=== PATIENT | male | born 1935 | race Caucasian/White ===

== ENCOUNTER 2016-09-23 14:33 | Observation (INO) ==
--- NOTE | 2016-09-23 15:48 | Emergency Department Note ---
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 Patient had episodes of feeling like he was going to pass out his blood pressure medicine was stopped because his blood pressure was going low. After about 5 weeks he noticed his blood pressure spiking up so he restarted his medications. He presents now for evaluation. 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 Description: lightheadedness, near-syncope History of similar episodes: No History of trauma: No Improves with: remaining still Worsens with: position - Related Data Home Medications Medication Instructions Recorded Confirmed Amlodipine [Norvasc] 10 mg PO BID 12/21/14 09/23/16 Atorvastatin [Lipitor] 20 mg PO DAILY 12/21/14 09/23/16 Clopidogrel [Plavix] 75 mg PO DAILY 12/21/14 09/23/16 Escitalopram [Lexapro] 10 mg PO DAILY 12/21/14 09/23/16 Ondansetron [Zofran] 4 mg PO Q6HR PRN 12/21/14 09/23/16 Rivaroxaban [Xarelto] 10 mg PO DAILY 12/21/14 09/23/16 Tiotropium [Spiriva] 18 mcg IH DAILY 01/22/16 09/23/16 Omeprazole/Sodium Bicarbonate 1 each PO DAILY 08/14/16 09/23/16 [Zegerid 20 mg Capsule] Nitroglycerin [Nitrostat] 0.4 mg SL DAILY PRN 09/23/16 09/23/16 Previous Rx's Medication Instructions Recorded HYDROcodone/Acet 5/325 mg [[place] 1 - 2 tab PO Q6H PRN #90 tab 07/18/16 5-325 mg] Bexarotene [Targretin] 1 appl TP DAILY #1 gel..gram. 08/14/16 HYDROcodone/Acet 10/325 mg [[place] 1 tab PO Q4HR PRN #180 tab 09/11/16 10-325 mg] Meclizine HCl [Verticalm] 25 mg PO TID PRN #20 tablet 09/23/16 Allergies Allergy/AdvReac Type Severity Reaction Status Date / Time No Known Allergies Allergy Verified 09/23/16 14:46 All systems ED: reviewed and negative except as stated. Constitutional: Denies: fever, chills, weakness, weight change Eyes: Denies: eye pain, eye discharge, vision change ENT ED: Denies: ear pain, throat pain, dental pain, hearing loss, epistaxis, congestion, dysphagia Cardiovascular: Reports: other (Or syncope). Denies: chest pain, palpitations, dyspnea on exertion, edema, syncope Respiratory: Denies: cough, dyspnea, wheezes, hemoptysis, stridor Gastrointestinal: Denies: abdominal pain, nausea, vomiting, diarrhea, constipation, hematemesis, melena, hematochezia Genitourinary: Denies: urgency, dysuria, frequency, hematuria Musculoskeletal: Denies: back pain, neck pain, arthralgia, myalgia Integumentary: Denies: rash, abrasion, lesions Neurological: Denies: headache, weakness, numbness, paresthesias, confusion, abnormal gait, vertigo Psychiatric: Denies: anxiety, depression, suicidal thoughts, homicidal thoughts , auditory hallucinations, visual hallucinations Endocrine: Denies: fatigue Hematological/Lymphatic: Denies: easy bleeding, easy bruising Allergic/Immunologic: Denies: facial swelling, urticaria Past Medical History - Past Medical History Medical history: Reports: coronary artery disease, hypertension Surgical history: Reports: LE stent(s) Psychiatric history: Reports: no psych history - Social History Smoking Status: Former smoker Smokeless Tobacco Status: No Alcohol use: Reports: rarely Drug use: Reports: none Physical Exam - General Limitations: no limitations General appearance: alert, in no apparent distress - Head Head exam: atraumatic, normocephalic, normal inspection - Eye Eye exam: Present: normal appearance, PERRL, EOMI - ENT ENT exam: normal exam, normal oropharynx, mucous membranes moist - Neck Neck exam: Present: normal inspection, full ROM, trachea midline - Chest Chest inspection: Present: normal inspection, symmetric chest wall rise - Respiratory Respiratory exam: Present: normal lung sounds bilaterally - Cardiovascular Cardiovascular exam: Present: regular rate - Abdominal Exam Abdominal exam: Present: soft, Non-Tender. Absent: tenderness, distention, guarding, rebound, rigidity - Extremities Exam Extremities exam: Present: normal inspection, full ROM. Absent: tenderness, pedal edema - Expanded Lower Extremity Exam Neurovascular/Tendon exam: Absent: motor deficit, sensory deficit, tendon deficit Gait: observed and normal - Back Exam Back exam: Present: normal inspection, full ROM. Absent: tenderness - Neurological Exam Neurological exam: Present: alert, oriented X3 - Psychiatric Psychiatric exam: Present: normal affect, normal mood - Skin Skin exam: Present: warm, dry, intact, normal color Course - Reevaluation(s) Reevaluation #1: 81-year-old comes in feeling like he is going to pass out. Patient has had episodes of bradycardia on the monitor. CT of the head no acute changes otherwise lab workup is negative. He will be admitted for observation. Time: 16:47 - Consultations Consultation #1: Discussed with , admit. Time: 16:47 Vital Signs Temperature 97.9 F 09/23/16 14:46 Pulse Rate 67 09/23/16 14:46 Respiratory Rate 15 09/23/16 14:46 Blood Pressure 159/73 09/23/16 14:46 O2 Sat by Pulse Oximetry 97 09/23/16 14:46 Temperature 97.9 F 09/23/16 14:46 Pulse Rate 56 09/23/16 16:14 Respiratory Rate 16 09/23/16 16:14 Blood Pressure 156/81 09/23/16 16:14 O2 Sat by Pulse Oximetry 97 09/23/16 16:14 Oxygen Delivery Oxygen Delivery Room Air Dizziness - Lab Data Lab results reviewed: Yes I reviewed the patient's lab results. Result diagrams: 09/23/16 15:55 09/23/16 15:55 Lab Results 09/23/16 09/23/16 09/23/16 Range/Units 15:55 15:55 15:55 WBC 5.6 (4.3-11.1) K/mcL RBC 3.76 L (4.19-5.50) M/mcL Hgb 11.9 L (12.9-16.9) g/dL Hct 36.2 L (37.5-50.1) % MCV 96.3 (83.0-100.0) fL MCH 31.6 (28.0-33.3) pg MCHC 32.9 (31.6-35.5) g/dL RDW 14.6 H (11.5-14.5) % Plt Count 232 (140-400) K/mcL MPV 10.1 (9.4-12.4) fL Immature Gran % 0.4 (0-4) % Seg Neutrophils % 67.0 % Lymphocytes % 18.0 % Monocytes % 11.6 % Eosinophils % 2.5 % Basophils % 0.5 % Neutrophils # 3.8 (1.6-8.9) K/mcL Lymphocytes # 1.0 (0.6-4.6) K/mcL Monocytes # 0.7 (0.0-1.3) K/mcL Eosinophils # 0.1 (0.0-0.6) K/mcL Basophils # 0.0 (0.0-0.2) K/mcL Sodium 141 (136-145) mEq/L Potassium 4.8 H (3.5-4.5) mEq/L Chloride 109 (98-109) mEq/L Carbon Dioxide 26 (19-29) mEq/L BUN 29 H (8-26) mg/dL Creatinine 1.51 H (0.72-1.25) mg/dL Est GFR ( Amer) 54 L (> 60) Est GFR (Non-Af Amer) 45 L (> 60) BUN/Creatinine Ratio 19 (6-26) Glucose 92 (70-99) mg/dL Calculated Osmolality 297 (280-300) Calcium 9.8 (8.6-10.8) mg/dL Troponin I 0.01 (0-0.03) ng/mL Urine Color (Yellow) Urine Clarity (Clear) Urine pH (5.0-8.0) pH Units Ur Specific [place] (1.010-1.025) Urine Protein (Neg-Trace) mg/dL Urine Glucose (UA) (Normal) mg/dL Urine Ketones (Negative) mg/dL Urine Blood (Negative) Urine Nitrite (Negative) Urine Bilirubin (Negative) Urine Urobilinogen (Normal) mg/dL Ur Leukocyte Esterase (Negative) Urine Microscopic RBC (0-3) per hpf Urine Microscopic WBC (0-3) per hpf Ur Squamous Epith Cells (None-Few) per lpf Calcium Oxalate Crystal Urine Bacteria (None-Few) per hpf Hyaline Casts (None-Few) per lpf Urine Mucus (Few) Ur Culture Indicated? (NO) 09/23/16 Range/Units 16:14 WBC (4.3-11.1) K/mcL RBC (4.19-5.50) M/mcL Hgb (12.9-16.9) g/dL Hct (37.5-50.1) % MCV (83.0-100.0) fL MCH (28.0-33.3) pg MCHC (31.6-35.5) g/dL RDW (11.5-14.5) % Plt Count (140-400) K/mcL MPV (9.4-12.4) fL Immature Gran % (0-4) % Seg Neutrophils % % Lymphocytes % % Monocytes % % Eosinophils % % Basophils % % Neutrophils # (1.6-8.9) K/mcL Lymphocytes # (0.6-4.6) K/mcL Monocytes # (0.0-1.3) K/mcL Eosinophils # (0.0-0.6) K/mcL Basophils # (0.0-0.2) K/mcL Sodium (136-145) mEq/L Potassium (3.5-4.5) mEq/L Chloride (98-109) mEq/L Carbon Dioxide (19-29) mEq/L BUN (8-26) mg/dL Creatinine (0.72-1.25) mg/dL Est GFR ( Amer) (> 60) Est GFR (Non-Af Amer) (> 60) BUN/Creatinine Ratio (6-26) Glucose (70-99) mg/dL Calculated Osmolality (280-300) Calcium (8.6-10.8) mg/dL Troponin I (0-0.03) ng/mL Urine Color Yellow (Yellow) Urine Clarity Cloudy A (Clear) Urine pH 5.5 (5.0-8.0) pH Units Ur Specific [place] 1.030 H (1.010-1.025) Urine Protein 30 H (Neg-Trace) mg/dL Urine Glucose (UA) Normal (Normal) mg/dL Urine Ketones Trace H (Negative) mg/dL Urine Blood Negative (Negative) Urine Nitrite Negative (Negative) Urine Bilirubin Small H (Negative) Urine Urobilinogen Normal (Normal) mg/dL Ur Leukocyte Esterase Negative (Negative) Urine Microscopic RBC 3-5 H (0-3) per hpf Urine Microscopic WBC 0-3 (0-3) per hpf Ur Squamous Epith Cells Many H (None-Few) per lpf Calcium Oxalate Crystal Present Urine Bacteria Few (None-Few) per hpf Hyaline Casts None Seen (None-Few) per lpf Urine Mucus Few (Few) Ur Culture Indicated? NO (NO) - Radiology Data Radiology results reviewed: Yes I reviewed the patient's radiology results. Chest X-Ray 09/23/16 15:32 IMPRESSION: No acute finding or significant change in the chest. D/ / Winston Rowe MD / Winston Rowe MD Interpreting Provider: Winston Rowe MD Head CT 09/23/16 15:32 IMPRESSION: No acute intracranial abnormality. Senescent changes. D/ / Eliazar Napoles / Eliazar Napoles Interpreting Provider: Eliazar Napoles - EKG Data EKG attestation: Yes I reviewed and interpreted this EKG. EKG shows normal: sinus rhythm Rate: normal Rhythm: NSR Interpretation: no acute changes
[2016-09-23 16:05] LABS: Basophils % 0.5 %; Eosinophils # 0.1 K/mcL (0.0-0.6); Eosinophils % 2.5 %; Hematocrit 36.2 % (37.5-50.1); Hemoglobin 11.9 g/dL (12.9-16.9); Immature Granulocytes % 0.4 % (0-4); Mean Corpuscular HGB Conc 32.9 g/dL (31.6-35.5); Mean Corpuscular Hemoglobin 31.6 pg (28.0-33.3); Mean Corpuscular Volume 96.3 fL (83.0-100.0); Mean Platelet Volume 10.1 fL (9.4-12.4); Monocytes # 0.7 K/mcL (0.0-1.3); Monocytes % 11.6 %; Neutrophils # 3.8 K/mcL (1.6-8.9); Platelet Count 232 K/mcL (140-400); Red Blood Count 3.76 M/mcL (4.19-5.50); Red Cell Distribution Width 14.6 % (11.5-14.5)
[2016-09-23 16:15] LABS: Calcium 9.8 mg/dL (8.6-10.8); Potassium 4.8 mEq/L (3.5-4.5)
[2016-09-23 16:25] LABS: Bilirubin,Urine Small (Negative); Blood,Urine Negative (Negative); Clarity,Urine Cloudy (Clear); Color,Urine Yellow (Yellow); Glucose,Urine (UA) Normal (Normal); Ketones,Urine Trace mg/dL (Negative); Leukocyte Esterase,Urine Negative (Negative); Nitrite,Urine Negative (Negative); PH,Urine 5.5 pH Units (5.0-8.0); Protein,Urine 30 mg/dL (Neg-Trace); Urobilinogen,Urine Normal (Normal)
[2016-09-23 16:27] LABS: Hyaline Casts,Urine None Seen per lpf (None-Few); Squamous Epithelial Cell,Urine Many per lpf (None-Few); WBC,Urine 0-3 per hpf (0-3)
[2016-09-23 16:30] LABS: Bacteria,Urine Few per hpf (None-Few); Calcium Oxalate Crystals,Urine Present; Mucus,Urine Few (Few)
--- NOTE | 2016-09-23 18:15 | Internal Med History&Physical ---
Date of Encounter: 09/23/16 Time of Encounter: 18:12 Assessment and Plan (1) Dizziness Current visit: Yes Status: Acute CT head is negative, he also c/o aural fullness and tinnitus. symptoms exacerbate when he moves around. no orthostasis, BP stable, no other focal neuro defecits. possible peripheral cause, probably BPPV, ?meniere's will start meclizine and check for response. also says that his HR goes low, sometimes in 40s and he was once evaluated by cardio for possible PM however he never needed one His HR is stable for now, will add continuous mycologist. (2) CAD (coronary artery disease) Current visit: Yes Status: Acute stable, continue home meds no chest pain s/p stent placement. Qualifiers: Coronary Disease-Associated Artery/Lesion type: [place] artery [place] vs. 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 has scaly and dry skin areas. 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 Walker is a 81 year old male with past medical history of hypertension, CAD status post stents, cutaneous T-cell lymphoma in remission, presented to ED with complaints of dizziness. He says he has on and off dizziness but today was worse, he was not able to stand and was about to pass out. He complains of bilateral aural fullness in transient blurring of vision. He denies any headache, focal neurological deficits, no syncope or seizures. He follows with Dr. Lawton, his blood pressure medications were held transiently given dizziness however it was restarted and the blood pressure started to go up. There is no evidence of orthostatic hypotension, checked at ED. At The time of my assessment, he is lying in bed in no acute distress, denies dizziness at this time. He reports that he went to urgent care at [place] where he was given a prescription for meclizine which he has not started yet. Past Med Surg Social Fam HX - Past Medical History Medical history: coronary artery disease, hypertension Psychiatric history: no psych history - Past Surgical History Surgical History: LE stent(s) - Social History Smoking Status: Former smoker Smokeless Tobacco Status: No Alcohol use: rarely Drug use: none - Family History Father Hx Family Cardiac Disorders: Yes ([place]) Internal Medicine - H&P: Meds Atorvastatin [Lipitor] 20 mg PO DAILY 12/21/14 [History] Clopidogrel [Plavix] 75 mg PO DAILY 12/21/14 [History] Escitalopram [Lexapro] 10 mg PO DAILY 12/21/14 [History] Ondansetron [Zofran] 4 mg PO Q6HR PRN 12/21/14 [History] Rivaroxaban [Xarelto] 10 mg PO DAILY 12/21/14 [History] Tiotropium [Spiriva] 18 mcg IH DAILY 01/22/16 [History] Bexarotene [Targretin] 1 appl TP DAILY #1 gel..gram. 08/14/16 [Rx] HYDROcodone/Acet 10/325 mg [[place] 10-325 mg] 1 tab PO Q4HR PRN #180 tab [Rx] Albuterol Sulfate [Albuterol Inhaler] 2 puff IH Q4H PRN 09/23/16 [History] Amlodipine Besylate/Benazepril [Lotrel 5-20 mg Capsule] 1 each PO DAILY [History] Budesonide [Pulmicort Flexhaler 180mcg] 180 mcg IH BID 09/23/16 [History] Calcium Carbonate [Calcium] 600 mg PO DAILY 09/23/16 [History] Garlic 1,500 mg PO DAILY 09/23/16 [History] Lidocaine Patch [Lidoderm 5% patch] 1 each TP DAILY 09/23/16 [History] Meclizine HCl [Verticalm] 25 mg PO TID PRN #20 tablet 09/23/16 [Rx] Mometasone Furoate [Nasonex] 2 spray NS DAILY PRN 09/23/16 [History] Multivitamin [Multi-Day Vitamins] 1 each PO DAILY 09/23/16 [History] Nitroglycerin [Nitrostat] 0.4 mg SL Q5M PRN 09/23/16 [History] Omeprazole/Sodium Bicarbonate [Omeprazole-Bicarb 40-1,680 Pkt] 1 packet PO DAILY PRN 09/23/16 [History] Ubidecarenone [Co Q-10] 30 mg PO DAILY 09/23/16 [History] Allergies No Known Allergies Allergy (Verified 09/23/16 14:46) All Systems PM: A 10-system review of systems was performed and is negative for pertinent findings except as documented above in the HPI. - Constitutional Constitutional: no chills, no fever(s), no night sweats - EENT Eyes: as per HPI Ears: as per HPI Nose, mouth and throat: as per HPI - Breasts Breasts: as per HPI - Cardiovascular Cardiovascular ROS IM: as per HPI - Respiratory Respiratory: as per HPI - Gastrointestinal Gastrointestinal: as per HPI - Genitourinary Genitourinary ROS male: as per HPI - Musculoskeletal Musculoskeletal ROS IM: as per HPI - Integumentary Integumentary IM: as per HPI - Neurological Neurological ROS: as per HPI - Constitutional Vitals: Temp Pulse Resp BP Pulse Ox 98.6 F 66 16 181/67 95 09/23/16 17:20 09/23/16 17:20 09/23/16 17:20 09/23/16 17:20 09/23/16 17:20 General appearance: Present: A&O X 3, no acute distress Exam: No nystagmus. Neck supple, Chest bilaterally clear, no added sounds. CVS S1 and S2, no murmurs rubs or gallops. Abdomen soft, nontender, bowel sounds are present. Extremities no edema. Neuro alert and awake 3, no focal neurological deficit. Skin dry and scaly, no open wounds. Internal Med - H&P Results - Labs CBC & Chem 7: 09/23/16 15:55 09/23/16 15:55
[2016-09-23] MEDS ORDERED: Naloxone 0.4 MG/ML INJ IVP PRN (18:26)
[2016-09-23] MEDS ORDERED: *HR* HYDROcodone/Acet 10/325 mg TABLET PO PRN ×2 (20:50→21:02)
[2016-09-23] MEDS: Beclomethasone 80mcg MDI IH SCH (22:26)
[2016-09-24 05:12] LABS: Basophils % 0.6 %; Eosinophils # 0.3 K/mcL (0.0-0.6); Eosinophils % 5.1 %; Hematocrit 33.8 % (37.5-50.1); Hemoglobin 11.4 g/dL (12.9-16.9); Immature Granulocytes % 0.2 % (0-4); Lymphocytes # 1.2 K/mcL (0.6-4.6); Lymphocytes % 23.4 %; Mean Corpuscular HGB Conc 33.7 g/dL (31.6-35.5); Mean Corpuscular Hemoglobin 32.3 pg (28.0-33.3); Mean Corpuscular Volume 95.8 fL (83.0-100.0); Mean Platelet Volume 10.9 fL (9.4-12.4); Monocytes # 0.7 K/mcL (0.0-1.3); Monocytes % 13.6 %; Neutrophils # 2.8 K/mcL (1.6-8.9); Platelet Count 223 K/mcL (140-400); Red Blood Count 3.53 M/mcL (4.19-5.50); Red Cell Distribution Width 14.6 % (11.5-14.5); Segmented Neutrophils % 57.1 %
[2016-09-24 05:27] LABS: BUN/Creatinine Ratio 21 (6-26); Blood Urea Nitrogen 28 mg/dL (8-26); Calcium 9.2 mg/dL (8.6-10.8); Carbon Dioxide 24 mEq/L (19-29); Chloride 110 mEq/L (98-109); Glucose 81 mg/dL (70-99); Osmolality,Calculated 297 (280-300); Potassium 4.4 mEq/L (3.5-4.5); Sodium 141 mEq/L (136-145); eGFR For African Americans > 60 (> 60); eGFR For Non-African Americans 53 (> 60)
[2016-09-24] MEDS: Beclomethasone 80mcg MDI IH SCH (07:55)
[2016-09-24] MEDS ORDERED: amLODIPine 5 MG TABLET PO SCH (09:00)
[2016-09-24] MEDS ORDERED: Lisinopril 20 MG TABLET PO SCH (09:00)
[2016-09-24] MEDS ORDERED: BEXAROTENE TP SCH (09:00)
[2016-09-24] MEDS ORDERED: GARLIC 1500 MG PO SCH (09:00)
[2016-09-24] MEDS ORDERED: Tiotropium 18 MCG inhalation IH SCH (09:00)
--- NOTE | 2016-09-24 09:58 | Discharge Summary ---
Date of Encounter: 09/24/16 Time of Encounter: 09:15 - Discharge Diagnosis (1) Dizziness Priority: Primary Status: Resolved Comments: Patient denied dizziness throughout this admission. Treated with Antivert. Chest x-ray negative. Head CT negative. Urinalysis negative. Orthostatic vital signs negative. Suspect BPPV versus Meniere's. We will continue Antivert and have him follow up outpatient (2) Benign paroxysmal positional vertigo Priority: Primary Status: Suspected Qualifiers: Laterality: unspecified laterality Qualified Code(s): H81.10 - Benign paroxysmal vertigo, unspecified ear (3) Near syncope Priority: Primary Status: Resolved (4) CKD (chronic kidney disease) stage 3, GFR 30-59 ml/min Priority: Secondary Status: Chronic Comments: Remained stable and at the high end of his normal on day of discharge. Follow- up outpatient. (5) CAD (coronary artery disease) Priority: Secondary Status: Chronic Comments: Patient denied chest pain or shortness of breath throughout this admission Qualifiers: Coronary Disease-Associated Artery/Lesion type: [place] artery [place] vs. transplanted heart: [place] heart Associated angina: without angina Qualified Code(s): I25.10 - Atherosclerotic heart disease of [place] coronary artery without angina pectoris (6) DVT (deep venous thrombosis) Priority: Secondary Status: Chronic Comments: continue Xarelto and follow-up outpatient. Chronic DVT to right lower extremity. No shortness of breath or indication of a PE during this admission. Qualifiers: DVT location: lower extremity Affected thrombotic vein of extremity: unspecified vein of extremity Laterality: right Chronicity: chronic Qualified Code(s): I82.501 - Chronic embolism and thrombosis of unspecified deep veins of right lower extremity (7) T-cell lymphoma Priority: Secondary Status: Chronic Comments: reportedly in remission- followup outpatient with oncologist as needed - Discharge Medications Prescriptions: Meclizine HCl [Verticalm] 25 mg PO TID PRN #20 tablet PRN Reason: Dizziness Home Medications: Atorvastatin [Lipitor] 20 mg PO DAILY 12/21/14 [History] Clopidogrel [Plavix] 75 mg PO DAILY 12/21/14 [History] Escitalopram [Lexapro] 10 mg PO DAILY 12/21/14 [History] Ondansetron [Zofran] 4 mg PO Q6HR PRN 12/21/14 [History] Rivaroxaban [Xarelto] 10 mg PO DAILY 12/21/14 [History] Tiotropium [Spiriva] 18 mcg IH DAILY 01/22/16 [History] Bexarotene [Targretin] 1 appl TP DAILY #1 gel..gram. 08/14/16 [Rx] HYDROcodone/Acet 10/325 mg [[place] 10-325 mg] 1 tab PO Q4HR PRN #180 tab [Rx] Albuterol Sulfate [Albuterol Inhaler] 2 puff IH Q4H PRN 09/23/16 [History] Amlodipine Besylate/Benazepril [Lotrel 5-20 mg Capsule] 1 each PO DAILY [History] Budesonide [Pulmicort Flexhaler 180mcg] 180 mcg IH BID 09/23/16 [History] Calcium Carbonate [Calcium] 600 mg PO DAILY 09/23/16 [History] Garlic 1,500 mg PO DAILY 09/23/16 [History] Lidocaine Patch [Lidoderm 5% patch] 1 each TP DAILY 09/23/16 [History] Mometasone Furoate [Nasonex] 2 spray NS DAILY PRN 09/23/16 [History] Multivitamin [Multi-Day Vitamins] 1 each PO DAILY 09/23/16 [History] Nitroglycerin [Nitrostat] 0.4 mg SL Q5M PRN 09/23/16 [History] Omeprazole/Sodium Bicarbonate [Omeprazole-Bicarb 40-1,680 Pkt] 1 packet PO DAILY PRN 09/23/16 [History] Ubidecarenone [Co Q-10] 30 mg PO DAILY 09/23/16 [History] Meclizine HCl [Verticalm] 25 mg PO TID PRN #20 tablet 09/24/16 [Rx] Allergies/Adverse Reactions: Allergies No Known Allergies Allergy (Verified 09/23/16 14:46) Date of admission: 09/23/16 16:58 Primary care physician: Victoriano Chadwick MD Discharging clinician: Bibiana Snowden Anticipated date of discharge: 09/24/16 - Patient Status Disposition: Home, Self-Care Condition: Good Functional capacity at discharge: independent ambulation Overall status at discharge: patient is back to baseline - Discharge Instructions Follow Up With: Victoriano Chadwick MD [Primary Care Provider] - Additional Instructions: Follow-up with primary care provider within one to 2 weeks - Diet and Activity Activity: increase activity as tolerated Diet: low fat, low cholesterol, low salt diet Hospital course: Mr. Walker is a 81 year old male with past medical history of hypertension, CAD status post stents, cutaneous T-cell lymphoma in remission, right lower extremity DVT on chronic Xarelto. Patient presented to the emergency department chief complaint on and off dizziness that worsened on the day of presentation and he was not able to stand and felt as if he was going to pass out. No syncope. He complained of bilateral fullness in his ears with transient blurring of his vision. He denied headache, focal neurological deficits, syncope or seizures. He is followed per Dr. Lawton of cardiology and his antihypertensive medications were recently adjusted as he had a side effect of dizziness. Workup in the emergency department unremarkable. Chest x- ray negative. Head CT negative for acute processes. Patient was admitted to the hospitalist service for further evaluation and management. He was observed overnight and remained asymptomatic. He was treated with Antivert and his symptoms resolved. Urinalysis negative. Orthostatic vital signs negative. Suspect BPPV versus Meniere's and he was given a prescription for Antivert. He was ambulated around the unit prior to discharge and tolerated it well without dizziness or presyncopal episodes. He was discharged home in stable condition with close outpatient follow-up recommended. ITS Impressions Chest X-Ray 09/23/16 15:32 IMPRESSION: No acute finding or significant change in the chest. D/ / Winston Rowe MD / Winston Rowe MD Interpreting Provider: Winston Rowe MD Head CT 09/23/16 15:32 IMPRESSION: No acute intracranial abnormality. Senescent changes. D/ / Eliazar Napoles / Eliazar Napoles Interpreting Provider: Eliazar Napoles - Time Spent with Patient Total time spent providing and/or coordinating discharge services: - Constitutional Vitals: Temp Pulse Resp BP Pulse Ox 97.9 F 65 16 154/67 97 09/24/16 08:04 09/24/16 08:04 09/24/16 08:04 09/24/16 09:26 09/24/16 08:04 General appearance: Present: A&O X 3, pleasant, no acute distress, answers questions appropriately - Head Head exam: Present: atraumatic, normocephalic - Eye Eye exam: Present: PERRL, conjuntiva pink, sclera anicteric Pupils: Present: PERRL - Neck Neck exam general surgery: Present: supple, trachea midline. Absent: lymphadenopathy - Respiratory Respiratory exam: Present: CTAB. Absent: accessory muscle use, rales, respiratory distress, rhonchi, wheezes - Cardiovascular Cardiovascular exam: Present: RRR, +S1, +S2. Absent: diastolic murmur, gallop, rubs, systolic murmur - GI/Abdominal GI/Abdominal exam: Present: normal bowel sounds, soft, no peritoneal signs. Absent: distended, tenderness - Extremities Exam Extremities exam: Present: warm, radial pulses palpable and symetrical. Absent : calf tenderness, cyanotic, pedal edema - Neurological Exam Neurological exam: Present: alert, CN II-XII intact, normal gait, oriented X3, no focal deficits, strengths equal and symetr throughout. Absent: pronater drift, facial droop, speech deficit - Skin Skin exam: Present: dry, intact, normal color, warm
[2016-09-24 10:47] VITALS: BP 149/75
--- NOTE | 2016-09-24 13:00 | Electrocardiograph Report ---
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
[2016-09-24] MEDS ORDERED: *HR* Rivaroxaban 10 MG TABLET PO SCH (17:00)
== END 2016-09-24 11:55 | disposition home or self-care (01) ==
LOC: 3BNU 14:33 → EMEROO 14:33 → 3BNU 17:20
PROVIDERS: ADMIT Internal Medicine Endocrinology, Diabetes & Metabolism; ATTEND Nurse Practitioner Family

== ENCOUNTER 2018-01-27 14:40 | Observation (INO) ==
--- NOTE | 2018-01-27 14:53 | Emergency Department Note ---
Disposition Clinical Impression: Chest pain Qualifiers: Chest pain type: unspecified Qualified Code(s): R07.9 - Chest pain, unspecified Disposition: Admitted As Inpatient Condition: Fair General Adult HPI - General Chief complaint: ED Dizziness Stated complaint: dizziness Time Seen by Provider: 01/27/18 14:42 Source: patient, family Mode of arrival: private vehicle Limitations: no limitations Nursing Notes Reviewed: Yes Vital Signs Reviewed: Yes - History of Present Illness HPI Narrative: Abby Walker is a 82 yo male with a history of cardiac and bilateral iliac artery stents, non-hodgkins lymphoma and kidney disease presents to the ED from urgent care with complaint of left sided chest discomfort and dizziness that started this morning. He has had similar episodes 2 other times in the past 6 weeks that resolved spontaneously but this episode has progressively gotten worse. He states these symptoms historically get worse/are brought on by exertion and heat. Todays episode was made better with nitroglycerin at the urgent care. He is currently asymptomatic in the ED. He describes the chest discomfort as "buzzing in his chest" and admits to associated neck stiffness and headache. Historically he states he started IVIG for non-hodgkins lymphoma and was told he could start having reactions at any time. He denies nausea, vomiting, diarrhea, numbness, tingling or vision changes. The history, physical exam, and medical decision making was performed by the medical student either while I was physically present and actively involved or I personally re-performed the exam and medical decision making. I have verified the accuracy of the medical student's documentation with regards to the history, physical exam findings, and medical decision making. Patient with history of stents both coronary and peripherally presents with chest pain. Relieved by nitroglycerin prior to arrival. On Eliquis. Chest pain is reported as a tingling sensation as well as a pressure. Chest X-Ray 01/27/18 14:53 IMPRESSION: No acute pulmonary finding. D/ / Tenzin Gonzales MD / Tenzin Gonzales MD Interpreting Provider: Tenzin Gonzales MD Head CT 01/27/18 14:53 IMPRESSION: No acute intracranial abnormality. Diffuse atrophic changes with findings suggesting chronic microvascular ischemia D/ / Watson Mendoza MD / Watson Mendoza MD Interpreting Provider: Watson Mendoza MD Vital Signs Temperature 98.0 F 01/27/18 14:44 Pulse Rate 66 01/27/18 14:44 Respiratory Rate 16 01/27/18 14:44 Blood Pressure 156/76 01/27/18 14:44 O2 Sat by Pulse Oximetry 100 01/27/18 14:44 Temperature 97.8 F 01/27/18 19:50 Pulse Rate 56 01/27/18 19:50 Respiratory Rate 16 01/27/18 20:38 Blood Pressure 164/84 01/27/18 19:50 O2 Sat by Pulse Oximetry 96 01/27/18 20:38 Oxygen Delivery Oxygen Delivery Room Air Onset (ago): day(s) Location: chest Radiation: neck (Neck stiffness) Quality: other ("Buzzing in the chest" ) Improves with: medication (Nitroglycerin) Worsens with: movement (Exertion and heat) Associated symptoms: Reports: chest pain, headaches. Denies: confusion, cough, fever/chills, nausea/vomiting Treatments Prior to Arrival: other (Nitroglycerin) - Related Data Home Medications Medication Instructions Recorded Confirmed Albuterol Sulfate [Albuterol 2 puff IH Q4H PRN 09/23/16 01/27/18 Inhaler] Amlodipine Besylate/Benazepril 1 each PO DAILY 09/23/16 01/27/18 [Lotrel 5-20 mg Capsule] Budesonide [Pulmicort Flexhaler 180 mcg IH BID 09/23/16 01/27/18 180mcg] Calcium Carbonate [Calcium] 600 mg PO DAILY 09/23/16 01/27/18 Garlic 1,500 mg PO DAILY 09/23/16 01/27/18 Lidocaine Patch [Lidoderm 5% patch] 1 each TP DAILY 09/23/16 01/27/18 Mometasone Furoate [Nasonex] 2 spray NS DAILY PRN 09/23/16 01/27/18 Nitroglycerin [Nitrostat] 0.4 mg SL Q5M PRN 09/23/16 01/27/18 Ubidecarenone [Co Q-10] 30 mg PO DAILY 09/23/16 01/27/18 Apixaban [Eliquis] 2.5 mg PO BID 01/27/18 01/27/18 Atorvastatin Calcium [Lipitor] 20 mg PO HS 01/27/18 01/27/18 Escitalopram [Lexapro] 10 mg PO DAILY 01/27/18 01/27/18 Multivitamin [One Daily Essential] 1 tab PO DAILY 01/27/18 01/27/18 Omeprazole/Sodium Bicarbonate 1 cap PO DAILY 01/27/18 01/27/18 [Zegerid 20 mg Capsule] Ondansetron HCl [Zofran] 4 mg PO Q6H PRN 01/27/18 01/27/18 Tamsulosin [Flomax] 0.4 mg PO DAILY 01/27/18 01/27/18 Previous Rx's Medication Instructions Recorded Meclizine HCl [Verticalm] 25 mg PO TID PRN #20 tablet 09/24/16 HYDROcodone/Acet 10/325 mg [[place] 1 tab PO Q4HR PRN #180 tab 10/13/16 10-325 mg] Bexarotene [Targretin] 1 appl TP DAILY #1 gel..gram. 04/28/17 Heparin 5,000 unit SQ Q12HCO vial 01/28/18 Allergies Allergy/AdvReac Type Severity Reaction Status Date / Time No Known Allergies Allergy Verified 01/27/18 12:30 All systems ED: reviewed and negative except as stated. Review of Systems: As Per HPI Constitutional: Denies: fever, chills Cardiovascular: Reports: chest pain, dyspnea on exertion. Denies: palpitations Respiratory: Denies: cough, dyspnea, wheezes Gastrointestinal: Reports: abdominal pain (Chronic abdominal pain). Denies: nausea, vomiting, diarrhea Genitourinary: Denies: urgency, dysuria, frequency Musculoskeletal: Reports: neck pain. Denies: back pain Neurological: Reports: headache. Denies: numbness, paresthesias Past Medical History - Past Medical History Medical history: Reports: atrial fibrillation, COPD Surgical history: Reports: LE stent(s) Psychiatric history: Reports: anxiety - Social History Smoking Status: Never smoker Smokeless Tobacco Status: No Alcohol use: Reports: none Drug use: Reports: none Physical Exam - General Limitations: no limitations General appearance: alert, in no apparent distress - Head Head exam: atraumatic, normocephalic - Eye Eye exam: Present: normal appearance, EOMI. Absent: scleral icterus, conjunctival injection - ENT ENT exam: normal exam, normal oropharynx, mucous membranes moist - Neck Neck exam: Present: normal inspection, full ROM - Chest Chest inspection: Present: normal inspection, symmetric chest wall rise. Absent : tenderness - Respiratory Respiratory exam: Present: normal lung sounds bilaterally. Absent: respiratory distress, wheezes, accessory muscle use - Cardiovascular Cardiovascular exam: Present: regular rate, normal rhythm, normal heart sounds - Abdominal Exam Abdominal exam: Present: soft, Non-Tender, normal bowel sounds. Absent: distention, guarding, rebound - Extremities Exam Extremities exam: Present: normal inspection, full ROM. Absent: tenderness, pedal edema - Expanded Lower Extremity Exam Hip/Pelvis exam: Present: normal inspection, full ROM Upper leg exam: Present: normal inspection, full ROM Knee exam: Present: normal inspection, full ROM Lower leg exam: Present: normal inspection, full ROM Ankle exam: Present: normal inspection, full ROM Foot/toe exam: Present: normal inspection, full ROM Neurovascular/Tendon exam: Absent: motor deficit, sensory deficit, tendon deficit - Back Exam Back exam: Present: normal inspection, full ROM - Neurological Exam Neurological exam: Present: alert, oriented X3, CN II-XII intact. Absent: motor sensory deficit - Psychiatric Psychiatric exam: Present: normal affect, normal mood - Skin Skin exam: Present: warm, intact Course Vital Signs Temperature 98.0 F 01/27/18 14:44 Pulse Rate 66 01/27/18 14:44 Respiratory Rate 16 01/27/18 14:44 Blood Pressure 156/76 01/27/18 14:44 O2 Sat by Pulse Oximetry 100 01/27/18 14:44 Temperature 98.0 F 01/28/18 03:39 Pulse Rate 46 01/28/18 11:50 Respiratory Rate 18 01/28/18 11:50 Blood Pressure 160/70 01/28/18 11:50 O2 Sat by Pulse Oximetry 95 01/28/18 11:50 Oxygen Delivery Oxygen Delivery Room Air Medical Decision Making - MDM Narrative Medical decision making narrative: 82-year-old male presents emergency department with concern for chest pain. Given nitroglycerin at urgent care. EKG did not reveal any ischemic changes. Troponin was negative. Chest x-ray was normal. Patient was not given aspirin as he is on Eliquis. Admitted to hospitalists for further evaluation as he is at high risk for acute coronary syndrome. Dizziness was reported as similar to previous history of dizziness which he has received workup. Spoke with the hospitalist and told him that I have not given aspirin. Hemogram was stable not in acute distress at time of admission. - Lab Data Result diagrams: 01/28/18 00:46 01/28/18 00:46 Lab Results 01/27/18 01/27/18 01/27/18 Range/Units 15:02 15:05 15:05 WBC 5.2 (4.3-11.1) K/mcL RBC 4.02 L (4.19-5.50) M/mcL Hgb 12.9 (12.9-16.9) g/dL Hct 38.6 (37.5-50.1) % MCV 96.0 (83.0-100.0) fL MCH 32.1 (28.0-33.3) pg MCHC 33.4 (31.6-35.5) g/dL RDW 13.4 (11.5-14.5) % Plt Count 165 (140-400) K/mcL MPV 10.8 (9.4-12.4) fL Immature Gran % 0.2 (0-4) % Seg Neutrophils % 73.2 % Lymphocytes % 13.4 % Monocytes % 10.7 % Eosinophils % 1.7 % Basophils % 0.8 % Neutrophils # 3.8 (1.6-8.9) K/mcL Lymphocytes # 0.7 (0.6-4.6) K/mcL Monocytes # 0.6 (0.0-1.3) K/mcL Eosinophils # 0.1 (0.0-0.6) K/mcL Basophils # 0.0 (0.0-0.2) K/mcL Sodium 139 (136-145) mEq/L Potassium 4.4 (3.5-5.1) mEq/L Chloride 109 H (98-107) mEq/L Carbon Dioxide 21 L (23-29) mEq/L BUN 23 (8-23) mg/dL Creatinine 1.44 H (0.70-1.30) mg/dL Est GFR ( Amer) 57 L (> 60) Est GFR (Non-Af Amer) 47 L (> 60) BUN/Creatinine Ratio 16 (6-26) Glucose 101 (70-105) mg/dL POC Glucose 92 (70-99) mg/dL Calculated Osmolality 292 (280-300) Calcium 9.9 (8.6-10.3) mg/dL Troponin I < 0.03 (< 0.04) ng/mL Urine Color (Yellow) Urine Clarity (Clear) Urine pH (5.0-8.0) pH Units Ur Specific Basco (1.010-1.025) Urine Protein (Neg-Trace) mg/dL Urine Glucose (UA) (Normal) mg/dL Urine Ketones (Negative) mg/dL Urine Blood (Negative) Urine Nitrite (Negative) Urine Bilirubin (Negative) Urine Urobilinogen (Normal) mg/dL Ur Leukocyte Esterase (Negative) Urine Microscopic RBC (0-3) per hpf Urine Microscopic WBC (0-3) per hpf Ur Squamous Epith Cells (None-Few) per lpf Urine Bacteria (None-Few) per hpf Hyaline Casts (None-Few) per lpf Ur Culture Indicated? (NO) 01/27/18 01/27/18 Range/Units 17:46 17:54 WBC (4.3-11.1) K/mcL RBC (4.19-5.50) M/mcL Hgb (12.9-16.9) g/dL Hct (37.5-50.1) % MCV (83.0-100.0) fL MCH (28.0-33.3) pg MCHC (31.6-35.5) g/dL RDW (11.5-14.5) % Plt Count (140-400) K/mcL MPV (9.4-12.4) fL Immature Gran % (0-4) % Seg Neutrophils % % Lymphocytes % % Monocytes % % Eosinophils % % Basophils % % Neutrophils # (1.6-8.9) K/mcL Lymphocytes # (0.6-4.6) K/mcL Monocytes # (0.0-1.3) K/mcL Eosinophils # (0.0-0.6) K/mcL Basophils # (0.0-0.2) K/mcL Sodium (136-145) mEq/L Potassium (3.5-5.1) mEq/L Chloride (98-107) mEq/L Carbon Dioxide (23-29) mEq/L BUN (8-23) mg/dL Creatinine (0.70-1.30) mg/dL Est GFR ( Amer) (> 60) Est GFR (Non-Af Amer) (> 60) BUN/Creatinine Ratio (6-26) Glucose (70-105) mg/dL POC Glucose (70-99) mg/dL Calculated Osmolality (280-300) Calcium (8.6-10.3) mg/dL Troponin I 0.03 (< 0.04) ng/mL Urine Color Yellow (Yellow) Urine Clarity Clear (Clear) Urine pH 7.5 (5.0-8.0) pH Units Ur Specific [place] 1.008 L (1.010-1.025) Urine Protein 30 H (Neg-Trace) mg/dL Urine Glucose (UA) Normal (Normal) mg/dL Urine Ketones Negative (Negative) mg/dL Urine Blood Negative (Negative) Urine Nitrite Negative (Negative) Urine Bilirubin Negative (Negative) Urine Urobilinogen Normal (Normal) mg/dL Ur Leukocyte Esterase Negative (Negative) Urine Microscopic RBC 5-15 H (0-3) per hpf Urine Microscopic WBC 0-3 (0-3) per hpf Ur Squamous Epith Cells None Seen (None-Few) per lpf Urine Bacteria None Seen (None-Few) per hpf Hyaline Casts None Seen (None-Few) per lpf Ur Culture Indicated? NO (NO) - EKG Data EKG #1 EKG attestation: Yes I reviewed and interpreted this EKG. EKG results narrative: 14:46 Heart rate 64 bpm, IL interval 190 ms, QRS duration 98 ms, QTC 418 ms, QTC 432 ms, normal axis. Sinus rhythm ventricular rate of 64 bpm. No evidence of any ischemic ST changes on this EKG. No evidence of any WPW, Brugada's Syndrome, Hypertrophic Cardiomyopathy, QT prolongation. Attestation Statement - Attestation Attestation: I examined this patient and my medical decision-making was reviewed with the Resident Physician, Dr. Mckay. I agree with the documented findings, disposition and treatment plan as described except to the extent set forth below. Pt is an 82-yr old wm, with hx CAD with cardiac stent in past, vacsular sx, lymphoma and CKD who is sent to the ER from for L sided CP. Pt was given ASA , and nitro x 1 with resolution of sxs. Pt asymptomatic on arrival to ED. Pt states he has been having L sided CP, usually brought on by exerton over the past few days. Episode today lasted longer. Pt unclear if this coudl be sxs due to his newly started IVIG for his lymphoma. I agree with pt's PE findings as documented. elev BP on arrival. EKG shows NSR with no acute ischemia. Labs and imaging wnl. Will admit for further eval of CP. Pt remains pain free. D /W hsopitalist.
[2018-01-27 15:26] LABS: Basophils % 0.8 %; Eosinophils # 0.1 K/mcL (0.0-0.6); Eosinophils % 1.7 %; Hematocrit 38.6 % (37.5-50.1); Hemoglobin 12.9 g/dL (12.9-16.9); Immature Granulocytes % 0.2 % (0-4); Lymphocytes # 0.7 K/mcL (0.6-4.6); Lymphocytes % 13.4 %; Mean Corpuscular HGB Conc 33.4 g/dL (31.6-35.5); Mean Corpuscular Hemoglobin 32.1 pg (28.0-33.3); Mean Platelet Volume 10.8 fL (9.4-12.4); Monocytes # 0.6 K/mcL (0.0-1.3); Monocytes % 10.7 %; Neutrophils # 3.8 K/mcL (1.6-8.9); Platelet Count 165 K/mcL (140-400); Red Blood Count 4.02 M/mcL (4.19-5.50); Red Cell Distribution Width 13.4 % (11.5-14.5); Segmented Neutrophils % 73.2 %
[2018-01-27 15:39] LABS: Troponin I < 0.03 ng/mL (< 0.04)
[2018-01-27 15:41] LABS: BUN/Creatinine Ratio 16 (6-26); Blood Urea Nitrogen 23 mg/dL (8-23); Calcium 9.9 mg/dL (8.6-10.3); Carbon Dioxide 21 mEq/L (23-29); Chloride 109 mEq/L (98-107); Glucose 101 mg/dL (70-105); Osmolality,Calculated 292 (280-300); Potassium 4.4 mEq/L (3.5-5.1); Sodium 139 mEq/L (136-145); eGFR For Non-African Americans 47 (> 60)
[2018-01-27] MEDS ORDERED: Acetaminophen 325 MG TABLET PO PRN (17:33)
[2018-01-27] MEDS ORDERED: Naloxone 0.4 MG/ML INJ IVP PRN (17:33)
[2018-01-27] MEDS ORDERED: traMADol 50 MG TABLET PO PRN (17:33)
[2018-01-27] MEDS ORDERED: Nitroglycerin 0.4 MG TAB.SUBL SL PRN (17:37)
[2018-01-27] MEDS ORDERED: *HR* HYDROcodone/Acet 10/325 mg TABLET PO PRN (17:38)
[2018-01-27] MEDS ORDERED: Fluticasone Propionate Nasal 50 MCG/SPRAY BOTTLE NS PRN (17:38)
[2018-01-27] MEDS ORDERED: Ondansetron ODT 4 MG TAB.RAPDIS PO PRN (17:38)
--- NOTE | 2018-01-27 17:44 | Internal Med History&Physical ---
Date of Encounter: 01/27/18 Time of Encounter: 17:41 Internal Medicine - H&P: HPI Admitted From: Home Plans for Post Hospital Care: Home History of present illness: Mr. Abby Walker is a 82 yo male with a history of cardiac and bilateral iliac artery stents, non-hodgkins lymphoma and kidney disease presents to the ED from urgent care with complaint of left sided chest discomfort and dizziness that started this morning. He has had similar episodes 2 other times in the past 6 weeks that resolved spontaneously but this episode has progressively gotten worse. He states these symptoms historically get worse/are brought on by exertion and heat. Todays episode was made better with nitroglycerin at the urgent care. He is currently asymptomatic in the ED. He describes the chest discomfort as "buzzing in his chest" and admits to associated neck stiffness and headache. Historically he states he started IVIG for non-hodgkins lymphoma and was told he could start having reactions at any time. He denies nausea, vomiting, diarrhea, numbness, tingling or vision changes. Past Med Surg Social Fam HX - Past Medical History Medical history: atrial fibrillation, COPD Additional medical history: hydrocele. lymphoma Psychiatric history: anxiety - Past Surgical History Surgical History: LE stent(s) Additional surgical history: ear surgery x 2, 3 cardiac stents - Social History Smoking Status: Never smoker Smokeless Tobacco Status: No Alcohol use: none Drug use: none - Family History Father Hx Family Cardiac Disorders: Yes ([place]) Internal Medicine - H&P: Meds Albuterol Sulfate [Albuterol Inhaler] 2 puff IH Q4H PRN 09/23/16 [History] Amlodipine Besylate/Benazepril [Lotrel 5-20 mg Capsule] 1 each PO DAILY [History] Budesonide [Pulmicort Flexhaler 180mcg] 180 mcg IH BID 09/23/16 [History] Calcium Carbonate [Calcium] 600 mg PO DAILY 09/23/16 [History] Garlic 1,500 mg PO DAILY 09/23/16 [History] Lidocaine Patch [Lidoderm 5% patch] 1 each TP DAILY 09/23/16 [History] Mometasone Furoate [Nasonex] 2 spray NS DAILY PRN 09/23/16 [History] Nitroglycerin [Nitrostat] 0.4 mg SL Q5M PRN 09/23/16 [History] Ubidecarenone [Co Q-10] 30 mg PO DAILY 09/23/16 [History] Meclizine HCl [Verticalm] 25 mg PO TID PRN #20 tablet 09/24/16 [Rx] HYDROcodone/Acet 10/325 mg [[place] 10-325 mg] 1 tab PO Q4HR PRN #180 tab [Rx] Bexarotene [Targretin] 1 appl TP DAILY #1 gel..gram. 04/28/17 [Rx] Apixaban [Eliquis] 2.5 mg PO BID 01/27/18 [History] Atorvastatin Calcium [Lipitor] 20 mg PO HS 01/27/18 [History] Escitalopram [Lexapro] 10 mg PO DAILY 01/27/18 [History] Multivitamin [One Daily Essential] 1 tab PO DAILY 01/27/18 [History] Omeprazole/Sodium Bicarbonate [Zegerid 20 mg Capsule] 1 cap PO DAILY 01/27/18 [ History] Ondansetron HCl [Zofran] 4 mg PO Q6H PRN 01/27/18 [History] Tamsulosin [Flomax] 0.4 mg PO DAILY 01/27/18 [History] 3 Allergy/AdvReac Type Severity Reaction Status Date / Time No Known Allergies Allergy Verified 01/27/18 12:30 All Systems PM: A 10-system review of systems was performed and is negative for pertinent findings except as documented above in the HPI. Review of systems: REVIEW OF SYSTEMS: CONSTITUTIONAL: No weight loss, fever, chills, weakness or fatigue. HEENT: Eyes: No visual loss, blurred vision, double vision or yellow sclerae. Ears, Nose, Throat: No hearing loss, sneezing, congestion, runny nose or sore throat. SKIN: No rash or itching. CARDIOVASCULAR: See history of present illness. RESPIRATORY: No shortness of breath, cough or sputum. GASTROINTESTINAL: No anorexia, nausea, vomiting or diarrhea. No abdominal pain or blood. GENITOURINARY: No dysuria, urgency, or frequency. NEUROLOGICAL: No headache, dizziness, syncope, paralysis, ataxia, numbness or tingling in the extremities. No change in bowel or bladder control. MUSCULOSKELETAL: No muscle, back pain, joint pain or stiffness. HEMATOLOGIC: No anemia, bleeding or bruising. LYMPHATICS: No enlarged nodes. No history of splenectomy. PSYCHIATRIC: No history of depression or anxiety. ENDOCRINOLOGIC: No reports of sweating, cold or heat intolerance. No polyuria or polydipsia. - Constitutional Vitals: Temp Pulse Resp BP Pulse Ox 98.0 F 59 18 167/81 99 01/27/18 14:44 01/27/18 17:33 01/27/18 17:33 01/27/18 17:33 01/27/18 17:33 General appearance: Present: cooperative, A&O X 3, answers questions appropriately Exam: PHYSICAL EXAMINATION: GENERAL APPEARANCE: The patient is alert, oriented and in no acute distress. HEENT: Head is normocephalic. The sinuses are nontender. Pupils are equal and reactive. The nares are patent. Oropharynx clear without lesions. NECK: Supple without lymphadenopathy. HEART: Regular rate and rhythm. LUNGS: No crackles or wheezes are heard. ABDOMEN: Soft, nontender, nondistended with good bowel sounds heard. Inguinal area is normal. EXTREMITIES: Without cyanosis, clubbing or edema. NEUROLOGICAL: Gross nonfocal. SKIN: Warm and dry without any rash. Internal Med - H&P Results - Labs CBC & Chem 7: 01/27/18 15:05 01/27/18 15:05 Labs: Short CBC 01/27/18 Range/Units 15:05 WBC 5.2 (4.3-11.1) K/mcL Hgb 12.9 (12.9-16.9) g/dL Hct 38.6 (37.5-50.1) % Plt Count 165 (140-400) K/mcL Neutrophils # 3.8 (1.6-8.9) K/mcL BMP 01/27/18 15:05 Sodium 139 Potassium 4.4 Chloride 109 H Carbon Dioxide 21 L BUN 23 Creatinine 1.44 H Glucose 101 Calcium 9.9 Cardiac Enzymes 01/27/18 Range/Units 15:05 Troponin I < 0.03 (< 0.04) ng/mL - Impressions ITS Impressions Chest X-Ray 01/27/18 14:53 IMPRESSION: No acute pulmonary finding. D/ / Tenzin Gonzales MD / Tenzin Gonzales MD Interpreting Provider: Tenzin Gonzales MD Head CT 01/27/18 14:53 IMPRESSION: No acute intracranial abnormality. Diffuse atrophic changes with findings suggesting chronic microvascular ischemia D/ / Watson Mendoza MD / Watson Mendoza MD Interpreting Provider: Watson Mendoza MD - Assessment and plan (1) Lightheadedness Current Visit: Yes Status: Acute Assessment and plan: 82-year-old man male with medical history of CAD status post stent, hyperlipidemia, hypertension, CKD, atrial fibrillation, and COPD presented with once episode of lightheadedness, chest tightness, and shortness of breath, which were relieved by nitroglycerin. Patient reported a few more episodes in the past but with severity. Also had palpitation in the past, which he follow up with cardiology. - Patient symptoms are very concerning for cardiac disease. First set of troponin was negative, EKG no acute ST-T change. His blood pressure was notably high at the ED, with SBP more than 190. However patient reported he checks BP at home every day, usually was normal. This could be caused by stress. - Continue cycle troponin, telemetry monitoring, EKG as needed. Echocardiogram and stress test ordered. (2) COPD (chronic obstructive pulmonary disease) Current Visit: No Status: Chronic Assessment and plan: No respiratory distress, continue home medications. Qualifiers: COPD type: unspecified COPD Qualified Code(s): J44.9 - Chronic obstructive pulmonary disease, unspecified (3) Atrial fibrillation Current Visit: No Status: Chronic Assessment and plan: Currently sinus rhythm, continue Eliquis. 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 (5) CAD (coronary artery disease) Current Visit: No Status: Chronic Assessment and plan: Continue home medications including aspirin, statins, and GOMEZ inhibitor. Qualifiers: Coronary Disease-Associated Artery/Lesion type: [place] artery [place] vs. transplanted heart: [place] heart Associated angina: without angina Qualified Code(s): I25.10 - Atherosclerotic heart disease of [place] coronary artery without angina pectoris (6) CKD (chronic kidney disease) stage 3, GFR 30-59 ml/min Current Visit: No Status: Chronic Assessment and plan: Stable, continue monitoring. (7) DVT prophylaxis Current Visit: Yes Status: Acute Assessment and plan: Heparin subcutaneous. - Time Spent With Patient Total time spent is greater than 50% in coordination of care (as documented) at patient's floor/unit and/or counseling patient: Greater than 35 minutes
[2018-01-27 18:05] LABS: Bilirubin,Urine Negative (Negative); Blood,Urine Negative (Negative); Clarity,Urine Clear (Clear); Color,Urine Yellow (Yellow); Glucose,Urine (UA) Normal (Normal); Ketones,Urine Negative (Negative); Leukocyte Esterase,Urine Negative (Negative); Nitrite,Urine Negative (Negative); PH,Urine 7.5 pH Units (5.0-8.0); Protein,Urine 30 mg/dL (Neg-Trace); Specific Gravity,Urine 1.008 (1.010-1.025); Urobilinogen,Urine Normal (Normal)
[2018-01-27 18:07] LABS: Bacteria,Urine None Seen per hpf (None-Few); Hyaline Casts,Urine None Seen per lpf (None-Few); Squamous Epithelial Cell,Urine None Seen per lpf (None-Few); WBC,Urine 0-3 per hpf (0-3)
[2018-01-27] MEDS: *HR* Heparin 5,000 UNIT/ML VIAL SQ SCH (19:17)
[2018-01-27] MEDS: Beclomethasone 80mcg MDI IH SCH (20:38)
[2018-01-27] MEDS: Apixaban 2.5 MG TABLET PO SCH (20:44)
[2018-01-28 01:31] LABS: Basophils # 0.1 K/mcL (0.0-0.2); Eosinophils # 0.2 K/mcL (0.0-0.6); Eosinophils % 3.4 %; Hematocrit 36.2 % (37.5-50.1); Hemoglobin 12.1 g/dL (12.9-16.9); Immature Granulocytes % 0.2 % (0-4); Lymphocytes # 0.9 K/mcL (0.6-4.6); Lymphocytes % 18.8 %; Mean Corpuscular HGB Conc 33.4 g/dL (31.6-35.5); Mean Corpuscular Hemoglobin 32.1 pg (28.0-33.3); Mean Platelet Volume 10.9 fL (9.4-12.4); Monocytes # 0.6 K/mcL (0.0-1.3); Monocytes % 12.8 %; Neutrophils # 3.2 K/mcL (1.6-8.9); Platelet Count 157 K/mcL (140-400); Red Blood Count 3.77 M/mcL (4.19-5.50); Red Cell Distribution Width 13.5 % (11.5-14.5); Segmented Neutrophils % 63.8 %
[2018-01-28 01:53] LABS: Albumin 3.6 g/dL (3.5-5.7); Albumin/Globulin Ratio 1.2 (1.1-2.2); Bilirubin,Total 0.7 mg/dL (0.3-1.0); Calcium 9.7 mg/dL (8.6-10.3); Chol/HDL Ratio 3.3 (0-4.9); Potassium 4.8 mEq/L (3.5-5.1); Total Protein 6.6 g/dL (6.4-8.9)
[2018-01-28] MEDS ORDERED: Regadenoson 0.4 MG/5 ML SYRINGE IVP ONE (05:31)
[2018-01-28] MEDS: *HR* Heparin 5,000 UNIT/ML VIAL SQ SCH (06:20)
[2018-01-28] MEDS ORDERED: SODIUM BICARBONATE PO SCH (09:00)
[2018-01-28] MEDS ORDERED: amLODIPine 5 MG TABLET PO SCH (09:00)
[2018-01-28] MEDS ORDERED: Multivit/Ca/Min/Fe/FA 1 TAB TABLET PO SCH (09:00)
[2018-01-28] MEDS ORDERED: OMEPRAZOLE PO SCH (09:00)
[2018-01-28] MEDS ORDERED: Lisinopril 20 MG TABLET PO SCH (09:00)
[2018-01-28] MEDS: Beclomethasone 80mcg MDI IH SCH (10:59)
[2018-01-28] MEDS: Apixaban 2.5 MG TABLET PO SCH (11:27)
[2018-01-28 11:51] VITALS: BP 160/70
--- NOTE | 2018-01-28 14:31 | Electrocardiograph Report ---
[address] [place], [place] [address] Test Date: 2018-01-27 Pat Name: Abby Walker Department: EXAM5 Room: 3B45 Gender: M Coil Shaper: : 1935 Requested By: John Mckay Order Number: [id number] Reading MD: Adam Thomas Measurements Intervals [place] Rate: 64 P: 55 WY: 198 QRS: 63 QRSD: 98 T: 61 QT: 418 QTc: 432 Interpretive Statements Sinus rhythm Electronically Signed On 01-28-2018 14:29:06 EDT by Adam Thomas
--- NOTE | 2018-01-28 14:57 | Electrocardiograph Report ---
[address] [place], [place] [address] Test Date: 2018-01-28 Pat Name: Abby Walker Department: 113 Room: 3B45 Gender: M Sap Developer: : 1935 Requested By: Huber Plascencia Order Number: [id number] Reading MD: Adam Thomas Measurements Intervals [place] Rate: 47 P: 62 [place]: 231 QRS: 56 QRSD: 102 T: 69 QT: 438 QTc: 402 Interpretive Statements SINUS BRADYCARDIA Electronically Signed On 01-28-2018 14:56:22 EDT by Adam Thomas
--- NOTE | 2018-01-28 15:14 | Discharge Summary ---
- NOTES TO OUTPATIENT PROVIDER Notes to Outpatient Provider: f/u with PCP within a week, f/u with cardiology within a week. f/u with neurology as scheduled. 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 transplanted heart: [place] heart Associated angina: without angina Qualified Code(s): I25.10 - Atherosclerotic heart disease of [place] coronary artery without angina pectoris (6) CKD (chronic kidney disease) stage 3, GFR 30-59 ml/min Priority: Secondary Status: Chronic (7) DVT prophylaxis Priority: Primary Status: Acute Hospital course: Mr. Abby Walker is a 82 yo male with a history of cardiac and bilateral iliac artery stents, non-hodgkins lymphoma and kidney disease presents to the ED from urgent care with complaint of left sided chest discomfort and dizziness that started this morning. He has had similar episodes 2 other times in the past 6 weeks that resolved spontaneously but this episode has progressively gotten worse. He states these symptoms historically get worse/are brought on by exertion and heat. Todays episode was made better with nitroglycerin at the urgent care. He is currently asymptomatic in the ED. He describes the chest discomfort as "buzzing in his chest" and admits to associated neck stiffness and headache. Historically he states he started IVIG for non-hodgkins lymphoma and was told he could start having reactions at any time. He denies nausea, vomiting, diarrhea, numbness, tingling or vision changes. An echocardiogram showed normal ejection fraction, mild left ventricular diastolic dysfunction, moderate aortic stenosis. Patient underwent stress nuclear test which revealed negative ischemia. Carotid Doppler also showed nonobstructive plaques. The patient has history of CIDP and currently treated with IVIG, patient dizziness is likely due to orthostatic hypotension caused by autonomic nerve dysfunction. He was instructed to wear elastic stocks and drink enough water. She was instructed to continue checks her blood pressure daily and take blood pressure medicine, he was instructed to continue follow-up with cardiology and neurology. He will follow-up with PCP within a week. Discharge discussed with: patient Time spent discussing smoking cessation with patient: more than 10 minutes - Time Spent with Patient Total time spent providing and/or coordinating discharge services: Greater than 30 minutes - Discharge Medications Home Medications: Albuterol Sulfate [Albuterol Inhaler] 2 puff IH Q4H PRN 09/23/16 [History] Amlodipine Besylate/Benazepril [Lotrel 5-20 mg Capsule] 1 each PO DAILY [History] Budesonide [Pulmicort Flexhaler 180mcg] 180 mcg IH BID 09/23/16 [History] Calcium Carbonate [Calcium] 600 mg PO DAILY 09/23/16 [History] Garlic 1,500 mg PO DAILY 09/23/16 [History] Lidocaine Patch [Lidoderm 5% patch] 1 each TP DAILY 09/23/16 [History] Mometasone Furoate [Nasonex] 2 spray NS DAILY PRN 09/23/16 [History] Nitroglycerin [Nitrostat] 0.4 mg SL Q5M PRN 09/23/16 [History] Ubidecarenone [Co Q-10] 30 mg PO DAILY 09/23/16 [History] Meclizine HCl [Verticalm] 25 mg PO TID PRN #20 tablet 09/24/16 [Rx] HYDROcodone/Acet 10/325 mg [[place] 10-325 mg] 1 tab PO Q4HR PRN #180 tab [Rx] Bexarotene [Targretin] 1 appl TP DAILY #1 gel..gram. 04/28/17 [Rx] Apixaban [Eliquis] 2.5 mg PO BID 01/27/18 [History] Atorvastatin Calcium [Lipitor] 20 mg PO HS 01/27/18 [History] Escitalopram [Lexapro] 10 mg PO DAILY 01/27/18 [History] Multivitamin [One Daily Essential] 1 tab PO DAILY 01/27/18 [History] Omeprazole/Sodium Bicarbonate [Zegerid 20 mg Capsule] 1 cap PO DAILY 01/27/18 [ History] Ondansetron HCl [Zofran] 4 mg PO Q6H PRN 01/27/18 [History] Tamsulosin [Flomax] 0.4 mg PO DAILY 01/27/18 [History] Heparin 5,000 unit SQ Q12HCO vial 01/28/18 [Rx] Allergies/Adverse Reactions: 3 Allergy/AdvReac Type Severity Reaction Status Date / Time No Known Allergies Allergy Verified 01/27/18 12:30 Date of admission: 01/27/18 18:15 Primary care physician: Victoriano Chadwick MD Anticipated date of discharge: 01/28/18 - Constitutional Vitals: Temp Pulse Resp BP Pulse Ox 98.0 F 46 18 160/70 95 01/28/18 03:39 01/28/18 11:50 01/28/18 11:50 01/28/18 11:50 01/28/18 11:50 General appearance: Present: cooperative, A&O X 3, answers questions appropriately Exam: PHYSICAL EXAMINATION: GENERAL APPEARANCE: The patient is alert, oriented and in no acute distress. HEENT: Head is normocephalic. The sinuses are nontender. Pupils are equal and reactive. The nares are patent. Oropharynx clear without lesions. NECK: Supple without lymphadenopathy. HEART: Regular rate and rhythm. LUNGS: No crackles or wheezes are heard. ABDOMEN: Soft, nontender, nondistended with good bowel sounds heard. Inguinal area is normal. EXTREMITIES: Without cyanosis, clubbing or edema. NEUROLOGICAL: Gross nonfocal. SKIN: Warm and dry without any rash. - Patient Status Disposition: Home, Self-Care Condition: Fair Functional capacity at discharge: independent ambulation Overall status at discharge: patient is back to baseline - Discharge Instructions Follow Up With: Victoriano Chadwick MD [Primary Care Provider] - (Requested a follow up appointment in 7-10 days. ) - Diet and Activity Activity: increase activity as tolerated Diet: advance to your usual diet
[2018-01-29] MEDS ORDERED: amLODIPine 5 MG TABLET PO SCH (09:00)
== END 2018-01-28 16:39 | disposition home or self-care (01) ==
LOC: 3BNU 14:40 → EMEROOARM 14:40 → 3BNU 18:46
PROVIDERS: ADMIT Internal Medicine; ATTEND Internal Medicine

== ENCOUNTER 2019-09-13 18:14 | Observation (INO) ==
[2019-09-13] MEDS ORDERED: Aspirin 81 MG TAB.CHEW PO STA (18:36)
[2019-09-13 18:55] LABS: Hematocrit 39.2 % (37.5-50.1); Mean Corpuscular HGB Conc 33.2 g/dL (31.6-35.5); Mean Corpuscular Hemoglobin 32.3 pg (28.0-33.3); Mean Corpuscular Volume 97.3 fL (83.0-100.0); Mean Platelet Volume 10.8 fL (9.4-12.4); Platelet Count 165 K/mcL (140-400); Red Blood Count 4.03 M/mcL (4.19-5.50); Red Cell Distribution Width 14.2 % (11.5-14.5); White Blood Count 4.5 K/mcL (4.3-11.1)
[2019-09-13 19:37] LABS: Calcium 9.6 mg/dL (8.6-10.3); Potassium 4.3 mEq/L (3.5-5.1); Troponin I 0.16 ng/mL (< 0.04)
[2019-09-13 19:53] LABS: Prothrombin Time 11.9 Seconds (9.4-12.1)
[2019-09-13] MEDS ORDERED: *HR* FentaNYL (PF) 100 MCG/2 ML VIAL IVP STA (20:12)
[2019-09-13] MEDS ORDERED: Naloxone 0.4 MG/ML INJ IVP PRN (20:50)
[2019-09-13] MEDS ORDERED: Ondansetron 4 MG/2 ML VIAL IVP PRN (20:50)
[2019-09-13] MEDS ORDERED: *HR* Heparin 5,000 UNIT/ML VIAL IVP ONE (20:53)
[2019-09-13] MEDS ORDERED: *HR* Heparin 5,000 UNIT/ML VIAL IVP PRN ×2 (20:53)
[2019-09-13] MEDS ORDERED: Heparin 25,000 UNIT/250 ML D5W 25,000 UNIT/250 ML IV.SOLN IVC SCH (21:00)
[2019-09-13 21:46] LABS: Heparin anti-factor XA UFH 0.23 IU/mL (0.30-0.70); Prothrombin Time 11.5 Seconds (9.4-12.1)
[2019-09-13] MEDS ORDERED: Fluticasone Propionate Nasal 50 MCG/SPRAY BOTTLE NS PRN (22:02)
[2019-09-14] MEDS: *HR* HYDROcodone/Acet 10/325 mg TABLET PO PRN ×3 (02:34→23:58)
[2019-09-14] MEDS ORDERED: Heparin 25,000 UNIT/250 ML D5W 25,000 UNIT/250 ML IV.SOLN IVC SCH (07:36)
[2019-09-14 07:58] LABS: Eosinophils # 0.2 K/mcL (0.0-0.6); Eosinophils % 4.3 %; Hematocrit 36.8 % (37.5-50.1); Hemoglobin 12.2 g/dL (12.9-16.9); Immature Granulocytes % 0.2 % (0-4); Lymphocytes # 1.1 K/mcL (0.6-4.6); Lymphocytes % 26.9 %; Mean Corpuscular HGB Conc 33.2 g/dL (31.6-35.5); Mean Corpuscular Hemoglobin 31.8 pg (28.0-33.3); Mean Corpuscular Volume 95.8 fL (83.0-100.0); Mean Platelet Volume 11.2 fL (9.4-12.4); Monocytes # 0.6 K/mcL (0.0-1.3); Monocytes % 13.1 %; Neutrophils # 2.3 K/mcL (1.6-8.9); Platelet Count 141 K/mcL (140-400); Red Blood Count 3.84 M/mcL (4.19-5.50); Red Cell Distribution Width 14.2 % (11.5-14.5); Segmented Neutrophils % 54.5 %; White Blood Count 4.2 K/mcL (4.3-11.1)
[2019-09-14 08:17] LABS: Calcium 9.2 mg/dL (8.6-10.3); Phosphorous 3.6 mg/dL (2.7-4.5); Potassium 4.1 mEq/L (3.5-5.1)
[2019-09-14 08:23] LABS: Troponin I 0.62 ng/mL (< 0.04)
[2019-09-14] MEDS: Aspirin Enteric Coated 81 MG Tablet PO SCH (10:21)
[2019-09-14] MEDS: lisinopriL 20 MG TABLET PO SCH (10:21)
[2019-09-14] MEDS: Multivit/Ca/Min/Fe/FA 1 TAB TABLET PO SCH (10:22)
[2019-09-14] MEDS: amLODIPine 5 MG TABLET PO SCH (10:22)
[2019-09-14] MEDS ORDERED: 0.9 % Sodium Chloride 2,000 ML ONE (13:47)
[2019-09-14] MEDS ORDERED: Heparin 1,000 UNITS/500 mL 500 ML ONE ×2 (13:47→14:34)
[2019-09-14] MEDS ORDERED: Nitroglycerin 1,000 MCG/10 ML VIAL IV ONE (13:47)
[2019-09-14] MEDS ORDERED: *HR* Heparin 10,000 UNIT/10 ML VIAL ONE (13:47)
[2019-09-14] MEDS ORDERED: ISOVUE-370 200 ML INFUS..BTL ONE (13:47)
[2019-09-14] MEDS ORDERED: *HR* FentaNYL (PF) 100 MCG/2 ML VIAL ONE (13:57)
[2019-09-14] MEDS ORDERED: *HR* Midazolam HCl 2 MG/2 ML VIAL ONE (13:57)
[2019-09-15] MEDS: Nitroglycerin 0.4 MG TAB.SUBL SL PRN ×3 (02:26→03:30)
[2019-09-15] MEDS ORDERED: Morphine Sulfate 2 MG/ML SYRINGE IVP ONE ×2 (02:46→03:40)
[2019-09-15 03:34] LABS: Basophils % 0.7 %; Eosinophils # 0.1 K/mcL (0.0-0.6); Eosinophils % 1.5 %; Hematocrit 38.8 % (37.5-50.1); Lymphocytes # 1.9 K/mcL (0.6-4.6); Mean Corpuscular HGB Conc 33.5 g/dL (31.6-35.5); Mean Corpuscular Hemoglobin 31.8 pg (28.0-33.3); Mean Corpuscular Volume 94.9 fL (83.0-100.0); Mean Platelet Volume 10.9 fL (9.4-12.4); Monocytes # 0.8 K/mcL (0.0-1.3); Monocytes % 13.7 %; Neutrophils # 3.2 K/mcL (1.6-8.9); Platelet Count 183 K/mcL (140-400); Red Blood Count 4.09 M/mcL (4.19-5.50); Red Cell Distribution Width 13.7 % (11.5-14.5); Segmented Neutrophils % 53.1 %
[2019-09-15 03:55] LABS: Calcium 9.3 mg/dL (8.6-10.3); Phosphorous 2.7 mg/dL (2.7-4.5); Potassium 3.6 mEq/L (3.5-5.1)
[2019-09-15] MEDS: Aspirin Enteric Coated 81 MG Tablet PO SCH (09:38)
[2019-09-15] MEDS: amLODIPine 5 MG TABLET PO SCH (09:39)
[2019-09-15] MEDS: lisinopriL 20 MG TABLET PO SCH (09:39)
[2019-09-15] MEDS: Multivit/Ca/Min/Fe/FA 1 TAB TABLET PO SCH (09:39)
[2019-09-15] MEDS: *HR* HYDROcodone/Acet 10/325 mg TABLET PO PRN (09:41)
[2019-09-15 12:23] VITALS: BP 143/69
== END 2019-09-15 14:09 | disposition short-term general hospital (02) ==
LOC: EMEROOARM 18:14 → 3BNU 18:14 → SUATTDRO 20:49 → 3BNU 22:23
PROVIDERS: ADMIT Family Medicine; ATTEND Internal Medicine